=== PATIENT | male | born 1970 | race Two or more races ===

== ENCOUNTER 2023-11-22 23:08 | Emergency (ER) | payer MEDICAID ==
[~2023-11-22] VITALS: Ht 175.3 cm; Wt 77.3 kg
[2023-11-22 23:39] VITALS: TEMP 98.6
[2023-11-23] MEDS: IBUPROFEN 600 MG TABLET PO ONE (00:59)
[2023-11-23] MEDS: ACETAMINOPHEN 500 MG TABLET PO ONE (01:00)
[2023-11-23] MEDS ORDERED: ACET-66 PO (01:28)
[2023-11-23] MEDS ORDERED: IBUP-1554 PO (01:28)
[2023-11-23 01:40] VITALS: BP 126/92; PULSE 82; RESP 16; O2SAT 98
== END 2023-11-23 01:48 | disposition home or self-care (01) ==
LOC: EMS 23:08
DX: S63.502A Unspecified sprain of left wrist, initial encounter (principal); F10.229 Alcohol dependence with intoxication, unspecified; X50.0XXA Overexertion from strenuous movement or load, initial encounter; Y93.89 Activity, other specified; Y92.89 Other specified places as the place of occurrence of the external cause; Y99.8 Other external cause status; Y90.9 Presence of alcohol in blood, level not specified
CPT/HCPCS: 99283; 99284